=== PATIENT | male | born 1995 | race African-American/Black ===

== ENCOUNTER → 2016-11-09 | Emergency (ER) | payer OTHER ==
[~2016-11-09] VITALS: Ht 188 cm; Wt 83.9 kg
[~2016-11-09] MED LIST: KETOROLAC 30 MG/ML VIAL (J1885) IV ONE; METOCLOPRAMIDE INJ 10MG/2ML VIAL (J2765) IV ONE; NS 1,000 ML IV ONE
[2016-11-09 10:02] LABS: BASO % 0.7 % (0.0-1.0); EOS # 0.1 K/mm3 (0.0-0.50); EOS % 2.3 % (0.0-3.0); LARGE UNSTAINED CELL # 0.1 K/mm3 (0.0-0.4); LARGE UNSTAINED CELL % 1.8 % (0.0-4.0); LYMPH # 1.8 K/mm3 (1.5-6.5); MEAN CORPUSCULAR HEMOGLOBIN 31.6 pg (27.0-33.0); MEAN CORPUSCULAR VOLUME 90.2 fl (80.0-96.0); MONO # 0.2 K/mm3 (0.0-0.8); NEUTROPHILS # 1.9 K/mm3 (1.8-7.7); NEUTROPHILS % 47.2 % (36.0-66.0); PLATELET COUNT, AUTOMATED 177 k/mm3 (150-450); RED CELL DISTRIBUTION WIDTH 12.5 % (11.5-14.5); WHITE BLOOD COUNT 3.9 K/mm3 (4.0-10.0)
[2016-11-09 10:38] LABS: ANION GAP 9 MEQ/L (8-16); BLOOD UREA NITROGEN 21 MG/DL (7-18); CALCIUM LEVEL 9.1 MG/DL (8.5-10.1); CARBON DIOXIDE LEVEL 28 MEQ/L (21-32); CHLORIDE LEVEL 107 MEQ/L (98-107); CREATININE FOR GFR 1.26 MG/DL (0.70-1.30); GLOMERULAR FILTRATION RATE > 60.0 (>60); GLUCOSE, FASTING 86 MG/DL (70-105); POTASSIUM SERUM 3.9 MEQ/L (3.5-5.1); SODIUM LEVEL 144 MEQ/L (136-145)
[2016-11-09 11:37] VITALS: BP 118/80
--- NOTE | 2016-11-10 11:34 | ECGEPIP ---
Stationary ECG Study [facility] - ED Test Date: 2016-11-09 Pat Name: MISSAEL SANTOS Department: Room: - Gender: M Regional Sales Representative: joseph : 1995 Requested By: Manish Yip PA-C Order Number: [id number] Reading MD: Carmen Mata Measurements Intervals [place] Rate: 57 P: 72 CT: 179 QRS: 36 QRSD: 100 T: 27 QT: 380 QTc: 371 Interpretive Statements SINUS BRADYCARDIA POSSIBLE RIGHT VENTRICULAR CONDUCTION DELAY EARLY REPOLARIZATION, CLINICAL CORRELATION NO PRIOR FOR COMPARISON Electronically Signed On 11-10-2016 11:34:41 EDT by Carmen Mata
== END | disposition home or self-care (01) ==
LOC: M ED 10:06
DX: R55 Syncope and collapse (principal); E86.0 Dehydration; R94.31 Abnormal electrocardiogram [ECG] [EKG]; F99 Mental disorder, not otherwise specified; R51 Headache; M54.5 Low back pain; G89.29 Other chronic pain; Z87.820 Personal history of traumatic brain injury
CPT/HCPCS: 80048; 84443; 85025; 93005; 93041; 96374; 96375; 99284; G0480; J1885; J2765

== ENCOUNTER 2016-12-01 14:43 | Emergency (ER) | payer OTHER ==
[~2016-12-01] VITALS: Ht 188 cm; Wt 80.7 kg
[2016-12-01 17:37] VITALS: BP 135/72
== END 2016-12-01 17:38 | disposition home or self-care (01) ==
LOC: M ED 17:34
DX: A74.9 Chlamydial infection, unspecified (principal); Z20.2 Contact with and (suspected) exposure to infections with a predominantly sexual mode of transmission; F43.10 Post-traumatic stress disorder, unspecified; G47.00 Insomnia, unspecified; Z87.820 Personal history of traumatic brain injury

== ENCOUNTER 2017-03-16 07:37 | Emergency (ER) | payer OTHER ==
[~2017-03-16] VITALS: Ht 185.4 cm; Wt 84.1 kg
[2017-03-16 07:52] VITALS: BP 144/76
[2017-03-16] MEDS ORDERED: ALBUTEROL 90 MCG/ACT 8GM HFA INHALER INH ONE (09:15)
[2017-04-21] MEDS ORDERED: ZOFR4TAB3 PO (16:02)
== END 2017-03-16 09:23 | disposition home or self-care (01) ==
LOC: M ED 07:37
DX: J06.9 Acute upper respiratory infection, unspecified (principal); Z87.820 Personal history of traumatic brain injury; F43.10 Post-traumatic stress disorder, unspecified; G47.00 Insomnia, unspecified; F17.200 Nicotine dependence, unspecified, uncomplicated

== ENCOUNTER 2017-05-31 16:51 | Emergency (ER) | payer OTHER ==
[~2017-05-31] VITALS: Ht 188 cm; Wt 84.1 kg
[~2017-05-31 16:51] MED LIST changes: -KETOROLAC 30 MG/ML VIAL (J1885) IV ONE; -METOCLOPRAMIDE INJ 10MG/2ML VIAL (J2765) IV ONE; -NS 1,000 ML IV ONE; +ZOFR4TAB3 PO
[2017-05-31 16:52] VITALS: BP 129/71
[2017-05-31] MEDS ORDERED: ACET65SU PO (16:58)
[2017-05-31] MEDS ORDERED: IBUP-1022 PO ×2 (16:58→18:03)
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
[2017-05-31] MEDS ORDERED: CYCL10TA PO (18:03)
[2017-05-31] MEDS ORDERED: CYCLOBENZAPRINE 10 MG TAB PO ONE (18:15)
[2017-05-31] MEDS ORDERED: IBUPROFEN 600 MG TAB PO ONE (18:15)
== END 2017-05-31 18:10 | disposition home or self-care (01) ==
LOC: M ED 16:51
DX: S13.9XXA Sprain of joints and ligaments of unspecified parts of neck, initial encounter (principal); V48.0XXA Car driver injured in noncollision transport accident in nontraffic accident, initial encounter; Y92.9 Unspecified place or not applicable; Y93.9 Activity, unspecified; Y99.9 Unspecified external cause status; F17.200 Nicotine dependence, unspecified, uncomplicated

== ENCOUNTER 2017-06-05 16:18 | Emergency (ER) | payer OTHER ==
[~2017-06-05] VITALS: Ht 188 cm; Wt 84.1 kg
[~2017-06-05 16:18] MED LIST changes: +ACET65SU PO; +CYCL10TA PO; +IBUP-1022 PO
[2017-06-05] MEDS ORDERED: diphenhydrAMINE INJ 50MG/ML VIAL (J1200) IV ONE (18:15)
[2017-06-05] MEDS ORDERED: METOCLOPRAMIDE INJ 10MG/2ML VIAL (J2765) IV ONE (18:15)
[2017-06-05] MEDS ORDERED: NS 500 ML IV ONE (18:15)
[2017-06-05] MEDS ORDERED: ACETAMINOPHEN 325 MG TAB PO ONE (18:15)
--- NOTE | 2017-06-05 19:00 | REPUSA ---
CT of the head Clinical history: Headache. Technique: Multiple axial CT images were obtained through the head without administration of contrast . Findings: The ventricles and sulci are symmetric bilaterally. There is no evidence of acute hemorrhag e or infarct. There is no midline shift, mass effect, or extra-axial fluid collection. The osseous st ructures are unremarkable. The visualized paranasal sinuses and mastoid air cells are clear. Impression: Negative study.
[2017-06-05 19:17] VITALS: BP 102/56
== END 2017-06-05 19:23 | disposition home or self-care (01) ==
LOC: M ED 16:18
DX: S06.0X0A Concussion without loss of consciousness, initial encounter (principal); R51 Headache; V48.0XXA Car driver injured in noncollision transport accident in nontraffic accident, initial encounter; Y92.9 Unspecified place or not applicable; Y93.9 Activity, unspecified; Y99.9 Unspecified external cause status; F41.9 Anxiety disorder, unspecified; F43.10 Post-traumatic stress disorder, unspecified; G47.00 Insomnia, unspecified; F17.200 Nicotine dependence, unspecified, uncomplicated
CPT/HCPCS: 70450; 96374; 96375; 99284; J1200; J2765